=== PATIENT | male | born 1945 | race Caucasian/White ===

== ENCOUNTER 2022-10-22 20:09 | Observation (INO) ==
[2022-10-22 20:42] LABS: Basophils % 0.5 % (0.0-0.8); Eosinophils # 0.2 10*3/uL (0.0-0.87); Eosinophils % 1.9 % (0.00-10.9); Hematocrit 44.6 VOL% (42.0-52.0); Hemoglobin 14.6 GM/DL (14.0-18.0); Immature Granulocytes % 0.4 %; Immature Granulocytes Absolute 0.03 #; Lymphocytes # 3.4 10*3/uL (1.4-4.0); Mean Corpuscular HGB Conc 32.7 GM/DL (32-36); Mean Corpuscular Volume 96.1 FL (87-102); Mean Platelet Volume 10.2 FL (9.6-12.0); Monocytes # 0.8 10*3/uL (0.11-0.8); Monocytes % 9.2 % (1.7-12.7); Platelet Count 208 T/CUMM (130-400); Red Blood Count 4.64 MC/CUMM (3.8-5.5); White Blood Count 8.3 T/CUMM (4-12)
[2022-10-22 21:07] LABS: Albumin 3.5 G/DL (3.4-5.0); Bilirubin,Total 0.7 MG/DL (0.20-1.00); Calcium 8.8 MG/DL (8.5-10.1); Osmolality,Calculated 284.3 MOS/KG (273-304); Potassium 3.8 MMOL/L (3.5-5.1); Total Protein 6.2 G/DL (6.4-8.2)
[2022-10-22] MEDS ORDERED: hydrALAZINE 20 MG/1 ML VIAL IV PRN (22:26)
[2022-10-22] MEDS ORDERED: ONDANSETRON 4 MG/2 ML VIAL IV PRN (22:26)
[2022-10-22] MEDS ORDERED: MORPHINE 2 MG/1 ML SYRINGE IV PRN (22:26)
[2022-10-22] MEDS ORDERED: GLUCAGON 1 MG VIAL IM PRN (22:26)
[2022-10-22] MEDS ORDERED: ACETAMINOPHEN 325 MG TABLET PO PRN (22:26)
[2022-10-22] MEDS ORDERED: SODIUM CHLORIDE 0.9% 1,000 ML IV SCH (22:30)
[2022-10-22] MEDS ORDERED: DEXTROSE 10% 250 ML BAG IV PRN (22:52)
[2022-10-22 23:30] LABS: Risk Ratio 3.76; Thyroid Stimulating Hormone 3.88 uIU/ml (0.358-3.74); VLDL Cholesterol 34.4 MG/DL
[2022-10-23] MEDS ORDERED: ALUMINUM/MAGNES/SIMETH MAX STR 30 ML UDCUP PO PRN (00:29)
[2022-10-23] MEDS ORDERED: METHOCARBAMOL 500 MG TABLET PO PRN (00:41)
[2022-10-23 01:09] LABS: Basophils % 0.3 % (0.0-0.8); Eosinophils # 0.1 10*3/uL (0.0-0.87); Eosinophils % 0.5 % (0.00-10.9); Hematocrit 43.4 VOL% (42.0-52.0); Hemoglobin 14.1 GM/DL (14.0-18.0); Immature Granulocytes % 0.5 %; Immature Granulocytes Absolute 0.05 #; Lymphocytes # 1.9 10*3/uL (1.4-4.0); Lymphocytes % 16.8 % (21.2-54.2); Mean Corpuscular HGB Conc 32.5 GM/DL (32-36); Mean Corpuscular Volume 96.7 FL (87-102); Mean Platelet Volume 9.8 FL (9.6-12.0); Monocytes # 0.9 10*3/uL (0.11-0.8); Monocytes % 7.7 % (1.7-12.7); Neutrophils % 74.2 % (38.7-73.9); Platelet Count 194 T/CUMM (130-400); Red Blood Count 4.49 MC/CUMM (3.8-5.5); Red Cell Distribution Width 12.9 % (9.3-17.3); White Blood Count 11.1 T/CUMM (4-12)
[2022-10-23 01:31] LABS: Albumin 3.4 G/DL (3.4-5.0); Bilirubin,Total 0.9 MG/DL (0.20-1.00); Calcium 8.5 MG/DL (8.5-10.1); Osmolality,Calculated 278.7 MOS/KG (273-304); Potassium 3.6 MMOL/L (3.5-5.1); Total Protein 6.2 G/DL (6.4-8.2)
[2022-10-23] MEDS ORDERED: ENOXAPARIN 40 MG/0.4 ML SYRINGE SUBCUT SCH (09:00)
[2022-10-23] MEDS: ASPIRIN 325 MG TABLET PO SCH ×2 (11:08→15:45)
[2022-10-23] MEDS: INSULIN LISPRO 100 UNIT/ML SUBCUT SCH ×2 (11:08→12:59)
[2022-10-23] MEDS: SUCRALFATE 1 GM TABLET PO SCH ×3 (11:09→15:45)
[2022-10-23] MEDS: LOSARTAN 50 MG TABLET PO SCH ×2 (11:09→15:46)
[2022-10-23] MEDS: MULTIVITAMIN (CENTRUM) TABLET PO SCH ×2 (11:09→15:46)
[2022-10-23] MEDS: GABAPENTIN 300 MG CAPSULE PO SCH ×3 (11:10→15:46)
[2022-10-23] MEDS: CHOLECALCIFEROL 5,000 UNIT TABLET PO SCH ×2 (11:11→15:46)
[2022-10-23] MEDS: PANTOPRAZOLE 40 MG TABLET PO SCH ×2 (11:11→15:46)
[2022-10-23 11:51] LABS: Free T4 (Free Thyroxine) 0.87 NG/DL (0.76-1.46)
[2022-10-23 12:07] LABS: Hepatitis B Core IgM Quant 0.09 Index; Hepatitis B Surface Ag Quant < 0.10 Index; Hepatitis B Surface Ag Result Non-Reactive (NonReactive); Hepatitis C Virus Ab Quant 0.02 Index; Hepatitis C Virus Ab Result Non-Reactive (NonReactive)
[2022-10-23 17:07] VITALS: BP 162/85
[2022-10-23] MEDS ORDERED: TAMSULOSIN 0.4 MG CAPSULE PO SCH (21:00)
== END 2022-10-23 17:19 | disposition home or self-care (01) ==
LOC: N.EDINP 20:09 → N.ED 20:09 → N.EDINP 10-23 00:05 → N.2W 10-23 00:31
PROVIDERS: ADMIT Internal Medicine; ATTEND Internal Medicine